=== PATIENT | female | born 1980 | race Caucasian/White ===

== ENCOUNTER 2017-11-24 11:35 | Observation (INO) | payer OTHER ==
[~2017-11-24 11:35] MED LIST: IBUP-232 PO; MECL25CH PO; PAXI10TA PO; ZOFR4TAB3 SL
[2017-11-24 11:44] VITALS: BP 148/100; PULSE 68; RESP 18; TEMP 98.2; O2SAT 96
--- NOTE | 2017-11-24 11:53 | PD ---
HPI Chief Complaint: Chest Pain Time Seen by Provider: 11:51 Travel History International Travel<30 days: No Contact w/Intl Traveler<30days: No Traveled to known affect area: No History of Present Illness HPI This 37-year-old female says she was at work this morning when she got very flushed. This is happened to her in the past when her blood pressure has been elevated. She then started having intermittent tightness in her chest and shortness of breath. . It does not appear related to exertion. She has no history of heart disease. She does smoke. She has no diabetes. She was adopted so she is not aware of her family history. Patient has been having the pain off and on. It lasts from seconds to several minutes. It is not associated with diaphoresis. She does feel a little bit short of breath. He does smoke cigarettes. She is adopted and does not know her family history. She had an elevated blood pressure reading here but generally does not have high blood pressure PFSH Past Medical History Depression: Yes Diminished Hearing: No ?: Not : 4 Para: 4 Tubal Ligation: Yes (09/12/2004) Past Surgical History Appendectomy: Yes (8 years ago) Ear Surgery: Yes (3 ear surgeries) Gynecologic Surgery: Yes (C/SECTION X 1) Tonsillectomy: Yes (at 6 years of age) Other Surgery: Yes (breast augmentation at 14 years of age) Social History Alcohol Use: Yes (COUPLE TIMES A MONTH) Tobacco Use: Yes (VAPES) Substance Use: No Allergies-Medications (Allergen,Severity, Reaction): Coded Allergies: bee venom protein (honey bee) (Unverified Allergy, Mild, DIFFICULTY BREATHING, 11/24/17) Reported Meds & Prescriptions Reported Meds & Active Scripts Active No Active Prescriptions or Reported Medications Review of Systems General / Constitutional: No: Fever, Chills Eyes: No: Diploplia, Blurred Vision HENT: No: Headaches Cardiovascular: Positive: Chest Pain or Discomfort, No: Palpitations, Irregular Rhythm Respiratory: No: Cough Gastrointestinal: No: Vomiting, Diarrhea Genitourinary: No: Urgency, Frequency Skin: Positive Other (FLUSHED) Neurologic: No: Weakness, Dizziness Psychiatric: No: Anxiety, Depression Hematologic/Lymphatic: No: Easy Bruising Physical Exam Narrative GENERAL: Well-developed female SKIN: Focused skin assessment warm/dry. There is some flushing of the face HEAD: Atraumatic. Normocephalic. EYES: Pupils equal and round. No scleral icterus. No injection or drainage. ENT: No nasal bleeding or discharge. Mucous membranes pink and moist. NECK: Trachea midline. No JVD. CARDIOVASCULAR: Regular rate and rhythm. No murmur appreciated. RESPIRATORY: No accessory muscle use. Clear to auscultation. Breath sounds equal bilaterally. No chest wall tenderness GASTROINTESTINAL: Abdomen soft, non-tender, nondistended. Hepatic and splenic margins not palpable. MUSCULOSKELETAL: No obvious deformities. No clubbing. No cyanosis. No edema. NEUROLOGICAL: Awake and alert. No obvious cranial nerve deficits. Motor grossly within normal limits. Normal speech. PSYCHIATRIC: Appropriate mood and affect; insight and judgment normal. Data Data Last Documented VS Vital Signs Date Time Temp Pulse Resp B/P (MAP) Pulse Ox O2 Delivery O2 Flow Rate FiO2 11/24/17 13:06 72 16 143/88 (106) 97 Room Air 11/24/17 11:44 98.2 Orders Orders Complete Blood Count With Diff (11/24/17 11:51) Comprehensive Metabolic Panel (11/24/17 11:51) Troponin I (11/24/17 11:51) Chest, Single Ap (11/24/17 11:51) Aspirin Chew (Aspirin Chew) (11/24/17 12:00) Labs Laboratory Tests Test 11/24/17 12:05 White Blood Count 9.4 TH/MM3 Red Blood Count 4.71 MIL/MM3 Hemoglobin 13.8 GM/DL Hematocrit 40.5 % Mean Corpuscular Volume 85.9 FL Mean Corpuscular Hemoglobin 29.2 PG Mean Corpuscular Hemoglobin Concent 34.0 % Red Cell Distribution Width 12.5 % Platelet Count 152 TH/MM3 Mean Platelet Volume 9.5 FL Neutrophils (%) (Auto) 66.3 % Lymphocytes (%) (Auto) 24.1 % Monocytes (%) (Auto) 4.7 % Eosinophils (%) (Auto) 4.2 % Basophils (%) (Auto) 0.7 % Neutrophils # (Auto) 6.2 TH/MM3 Lymphocytes # (Auto) 2.3 TH/MM3 Monocytes # (Auto) 0.4 TH/MM3 Eosinophils # (Auto) 0.4 TH/MM3 Basophils # (Auto) 0.1 TH/MM3 CBC Comment DIFF FINAL Differential Comment Blood Urea Nitrogen 8 MG/DL Creatinine 0.83 MG/DL Random Glucose 111 MG/DL Total Protein 7.3 GM/DL Albumin 3.7 GM/DL Calcium Level 9.0 MG/DL Alkaline Phosphatase 66 U/L Aspartate Amino Transf (AST/SGOT) 10 U/L Alanine Aminotransferase (ALT/SGPT) 26 U/L Total Bilirubin 0.4 MG/DL Sodium Level 140 MEQ/L Potassium Level 3.7 MEQ/L Chloride Level 108 MEQ/L Carbon Dioxide Level 27.3 MEQ/L Anion Gap 5 MEQ/L Estimat Glomerular Filtration Rate 77 ML/MIN Troponin I LESS THAN 0.02 NG/ML MDM Medical Decision Making Medical Screen Exam Complete: Yes Emergency Medical Condition: Yes Medical Record Reviewed: Yes Differential Diagnosis Differential includes coronary artery disease, GERD, chest wall pain Narrative Course EKG is normal. Troponin is normal patient will be further evaluated in the chest pain center Diagnosis Primary Impression: Chest pain Scripts No Active Prescriptions or Reported Meds Madan Vick MD Nov 24, 2017 11:53
[2017-11-24] MEDS ORDERED: ASPIRIN 81 MG CHEW TAB CHEW ONE (12:00)
[2017-11-24 12:12] VITALS: BP 133/82; PULSE 82; RESP 18; O2SAT 97
[2017-11-24 12:17] LABS: AUTOMATED NEUTROPHIL # 6.2 TH/MM3 (1.8-7.7); BASOPHIL # 0.1 TH/MM3 (0-0.2); BASOPHIL % 0.7 % (0.0-2.0); EOSINOPHIL # 0.4 TH/MM3 (0-0.4); EOSINOPHIL % 4.2 % (0.0-4.0); HEMATOCRIT 40.5 % (35.0-46.0); HEMOGLOBIN 13.8 GM/DL (11.6-15.3); LYMPH % 24.1 % (9.0-44.0); LYMPHOCYTE # 2.3 TH/MM3 (1.0-4.8); MEAN CELL VOLUME 85.9 FL (80.0-100.0); MEAN CORPUSCULAR HEMOGLOBIN 29.2 PG (27.0-34.0); MEAN PLATELET VOLUME 9.5 FL (7.0-11.0); MONO % 4.7 % (0.0-8.0); MONOCYTE # 0.4 TH/MM3 (0-0.9); NEUT % 66.3 % (16.0-70.0); PLATELET COUNT 152 TH/MM3 (150-450); RED BLOOD COUNT 4.71 MIL/MM3 (4.00-5.30); RED CELL DISTRIBUTION WIDTH 12.5 % (11.6-17.2); WHITE BLOOD COUNT 9.4 TH/MM3 (4.0-11.0)
[2017-11-24 12:18] LABS: CHLORIDE 108 MEQ/L (98-107); SODIUM (NA) 140 MEQ/L (136-145)
[2017-11-24 12:22] LABS: ALBUMIN 3.7 GM/DL (3.4-5.0); BICARBONATE 27.3 MEQ/L (21.0-32.0); BLOOD UREA NITROGEN 8 MG/DL (7-18); GLUCOSE,RANDOM 111 MG/DL (74-106)
[2017-11-24 12:25] LABS: ALT (GPT) 26 U/L (10-53); AST (GOT) 10 U/L (15-37); CREATININE 0.83 MG/DL (0.50-1.00); GLOMERULAR FILTRATION RATE 77 ML/MIN (>89)
[2017-11-24 12:26] LABS: TOTAL BILIRUBIN ADULT 0.4 MG/DL (0.2-1.0); TOTAL PROTEIN 7.3 GM/DL (6.4-8.2)
[2017-11-24 12:28] LABS: ALKALINE PHOSPHATASE 66 U/L (45-117)
[2017-11-24 12:30] LABS: TROPONIN I LESS THAN 0.02 NG/ML (0.02-0.05)
--- NOTE | 2017-11-24 12:37 | RADRPT ---
EXAM DATE/TIME: 11/24/2017 12:10 [facility] COMPARISON: No previous studies available for comparison. INDICATIONS : Chest pain, short of breath, elevated BP. MEDICAL HISTORY : None. SURGICAL HISTORY : Appendectomy. Tubal ligation. ENCOUNTER: Initial ACUITY: 1 day PAIN SCORE: 0/10 LOCATION: Bilateral chest FINDINGS: A single view of the chest demonstrates the lungs to be symmetrically aerated without evidence of mas s, infiltrate or effusion. The cardiomediastinal contours are unremarkable. Osseous structures are intact. CONCLUSION: No acute disease. Ramiro Oswald MD on November 24, 2017 at 12:35 Board Certified Radiologist. This report was verified electronically.
[2017-11-24 13:06] VITALS: BP 143/88; PULSE 72; RESP 16; O2SAT 97
[2017-11-24] MEDS ORDERED: ONDANSETRON HCL 4 MG/2 ML VIAL IV PUSH PRN (13:30)
[2017-11-24] MEDS ORDERED: ACETAMINOPHEN/HYDROcodone 325 MG/7.5 MG TAB PO PRN (13:30)
[2017-11-24] MEDS ORDERED: MORPHINE SULFATE 4 MG/ML INJ IV PUSH PRN (13:30)
[2017-11-24] MEDS ORDERED: SODIUM CHLORIDE 0.9% FLUSH 10 ML FLUSH IV FLUSH PRN (13:30)
[2017-11-24] MEDS ORDERED: NITROGLYCERIN 0.4 MG SL 25 TABS/BTL SL PRN (13:30)
[2017-11-24] MEDS ORDERED: ACETAMINOPHEN 500 MG CPLT PO PRN (13:30)
[2017-11-24 14:35] VITALS: BP 118/70; PULSE 71; RESP 20; TEMP 97.9; O2SAT 97
--- NOTE | 2017-11-24 14:52 | HHI.HP ---
[facility] Monty Hugo MD Admission Diagnosis CHEST PAIN Diagnoses: (1) Chest pain Diagnosis: Principal Chief Complaint: Chest discomfort Travel History International Travel<30 Days: No Contact w/Intl Traveler <30 Da: No Traveled to Known Affected Are: No History of Present Illness 37-year-old female with no chronic medical illnesses who presented to the hospital because of chest discomfort. Patient states that she is normal state of health and was at work this morning and approximately 7 AM 1 of her fellow workers told her that she looked a little flushed. Patient did not think anything about it at that time and then approximately an hour and half later she started feeling bad with lightheadedness, dizziness, chest tightness, dyspnea on exertion. Patient indicates that her chest tightness was 4/10 on a pain scale without any radiation to the neck, back, shoulder, arm. She denied any diaphoresis. The patient indicates that her symptoms were persistent and her application development project manager notified her to have her daughter come pick her up and take her home. Patient has had these episodes in the past and most of the time it was due to her blood pressure being elevated. She had her daughter take her to an urgent care and she indicated her systolic blood pressure was in the 150s. She indicates that not as elevated as it can get. Because she continued to have the chest tightness and dyspnea on exertion she came to the emergency department for evaluation. Patient had initial testing which did not indicate any acute abnormality. Is recommended by the ER physician that the patient be observed in the chest pain center. Patient indicates that she has had previous cardiac workups. She has undergone both an exercise stress test as well as a chemical stress test. The last one was around 2 years ago which was completely normal. Review of Systems Constitutional: COMPLAINS OF: Dizziness Cardiovascular: COMPLAINS OF: Chest pain, Dyspnea on Exertion Except as stated in HPI: all other systems reviewed are Neg Past Family Social History Past Medical History No chronic medical illnesses Past Surgical History Appendectomy 1 Right ear surgery Tonsillectomy Breast augmentation Nose surgery Reported Medications Reported Meds & Active Scripts Active No Active Prescriptions or Reported Medications Allergies: Coded Allergies: bee venom protein (honey bee) (Unverified Allergy, Mild, DIFFICULTY BREATHING, 11/24/17) Family History Family history reviewed, however it is not unknown patient is adopted Social History Patient does use vapor with 3% nicotine. He does drink alcohol occasionally. Denies any illicit drug Physical Exam Vital Signs Vital Signs Date Time Temp Pulse Resp B/P (MAP) Pulse Ox O2 Delivery O2 Flow Rate FiO2 11/24/17 13:50 11/24/17 13:06 72 16 143/88 (106) 97 Room Air 11/24/17 12:12 82 18 133/82 (99) 97 Room Air 11/24/17 12:12 Room Air 11/24/17 11:44 98.2 68 18 148/100 (116) 96 Physical Exam GENERAL: Well-developed, well-nourished, in no acute distress. alert and orientated HEENT: Head is normocephalic without any lesions or masses noted. Facial features are symmetric. Eyes: Pupils equal round reactive to light. Extraocular muscles are intact. Conjunctivae were clear. Oropharyngeal: Pharynx without any erythema edema. Tongue is midline without deviation. Buccal mucosa is moist without any masses or lesions NECK: Supple without any masses. Trachea midline no deviation. No JVD, no bruits are appreciated CARDIAC: Regular rhythm, regular rate. S1/S2 are heard. No murmurs gallops or rubs. LUNGS: Clear to auscultation bilaterally. No wheeze, rhonchi or rales. No use of accessory muscles on inspiration or expiration. ABDOMEN: Soft, nontender. Nondistended. Bowel sounds heard in all 4 quadrants. No organomegaly or masses. Negative rebound, negative guarding EXTREMITIES: No edema, pulses are equal bilaterally. No cyanosis or clubbing NEUROLOGY: Mood and affect appear appropriate. Cranial nerves II through XII grossly intact. Muscle strength 5/5 in upper and lower extremities bilaterally. Deep tendon reflexes are 2+ in upper and lower extremities bilaterally. Laboratory Laboratory Tests Test 11/24/17 12:05 White Blood Count 9.4 Red Blood Count 4.71 Hemoglobin 13.8 Hematocrit 40.5 Mean Corpuscular Volume 85.9 Mean Corpuscular Hemoglobin 29.2 Mean Corpuscular Hemoglobin Concent 34.0 Red Cell Distribution Width 12.5 Platelet Count 152 Mean Platelet Volume 9.5 Neutrophils (%) (Auto) 66.3 Lymphocytes (%) (Auto) 24.1 Monocytes (%) (Auto) 4.7 Eosinophils (%) (Auto) 4.2 Basophils (%) (Auto) 0.7 Neutrophils # (Auto) 6.2 Lymphocytes # (Auto) 2.3 Monocytes # (Auto) 0.4 Eosinophils # (Auto) 0.4 Basophils # (Auto) 0.1 CBC Comment DIFF FINAL Differential Comment Blood Urea Nitrogen 8 Creatinine 0.83 Random Glucose 111 Total Protein 7.3 Albumin 3.7 Calcium Level 9.0 Alkaline Phosphatase 66 Aspartate Amino Transf (AST/SGOT) 10 Alanine Aminotransferase (ALT/SGPT) 26 Total Bilirubin 0.4 Sodium Level 140 Potassium Level 3.7 Chloride Level 108 Carbon Dioxide Level 27.3 Anion Gap 5 Estimat Glomerular Filtration Rate 77 Troponin I LESS THAN 0.02 Result Diagram: 11/24/17 1205 11/24/17 1205 Imaging Last Impressions Chest X-Ray 11/24/17 1151 Signed Impressions: Service Date/Time: Friday, November 24, 2017 12:10 - CONCLUSION: No acute disease. MD Arjun Thompson VTE Risk Assessment Caprini VTE Risk Assessment: No/Low Risk (score <= 1) Caprini Risk Assessment Model Point Value = 1 Point Value = 2 Point Value = 3 Point Value = 5 Age 41-60 Minor surgery BMI > 25 kg/m2 Swollen legs Varicose veins or History of unexplained or recurrent spontaneous Oral contraceptives or hormone replacement Sepsis (< 1 month) Serious lung disease, including pneumonia (< 1 month) Abnormal pulmonary function Acute myocardial infarction Congestive heart failure (< 1 month) History of inflammatory bowel disease Medical patient at bed rest Age 61-74 Arthroscopic surgery Major open surgery (> 45 min) Laparoscopic surgery (> 45 min) Malignancy Confined to bed (> 72 hours) Immobilizing plaster cast Central venous access Age >= 75 History of VTE Family history of VTE Factor V Leiden Prothrombin [id number] Lupus anticoagulant Anticardiolipin antibodies Elevated serum homocysteine Heparin-induced thrombocytopenia Other congenital or acquired thrombophilia Stroke (< 1 month) Elective arthroplasty Hip, pelvis, or leg fracture Acute spinal cord injury (< 1 month) Prophylaxis Regimen Total Risk Factor Score Risk Level Prophylaxis Regimen 0-1 Low Early ambulation 2 Moderate Order ONE of the following: *Sequential Compression Device (SCD) *Heparin 5000 units SQ BID 3-4 Higher Order ONE of the following medications: *Heparin 5000 units SQ TID *Enoxaparin/Lovenox 40 mg SQ daily (WT < 150 kg, CrCl > 30 mL/min) *Enoxaparin/Lovenox 30 mg SQ daily (WT < 150 kg, CrCl > 10-29 mL/min) *Enoxaparin/Lovenox 30 mg SQ BID (WT < 150 kg, CrCl > 30 mL/min) AND/OR *Sequential Compression Device (SCD) 5 or more Highest Order ONE of the following medications: *Heparin 5000 units SQ TID (Preferred with Epidurals) *Enoxaparin/Lovenox 40 mg SQ daily (WT < 150 kg, CrCl > 30 mL/min) *Enoxaparin/Lovenox 30 mg SQ daily (WT < 150 kg, CrCl > 10-29 mL/min) *Enoxaparin/Lovenox 30 mg SQ BID (WT < 150 kg, CrCl > 30 mL/min) AND *Sequential Compression Device (SCD) Assessment and Plan Assessment and Plan Chest pain, atypical -Patient with risk factors include tobacco use -Patient has been ruled out for acute coronary event with serial cardiac enzymes have remained negative -Serial cardiac enzymes were performed and reviewed myself that do not indicate any acute abnormality or any changes -Exercise stress test was performed and did not indicate any underlying ischemia -Continue aspirin, nitroglycerin as needed, Logan and morphine for pain -Continue monitor telemetry DVT prevention -Low risk, early ambulation Discharge disposition Discharge home in stable condition Activity: Ad patricio. Diet: Regular diet Medication per medication reconciliation Follow-up with primary medical doctor in 1 week Shaun Cash Nov 24, 2017 14:52
[2017-11-24 15:51] LABS: TROPONIN I LESS THAN 0.02 NG/ML (0.02-0.05)
[2017-11-24 16:00] VITALS: O2SAT 96
--- NOTE | 2017-11-24 17:08 | HHI.DCPOC ---
Discharge Care Plan Diagnosis: (1) Chest pain Goals to Promote Your Health * To prevent worsening of your condition and complications * To maintain your health at the optimal level Directions to Meet Your Goals Take your medications as prescribed Follow your dietary instruction Follow activity as directed Keep your appointments as scheduled Take your immunizations and boosters as scheduled If your symptoms worsen call your PCP, if no PCP go to Urgent Care Center or Emergency Room Smoking is Dangerous to Your Health. Avoid second hand smoke Call the 24-hour hour crisis hotline for domestic abuse at Shaun Cash Nov 24, 2017 17:08
--- NOTE | 2017-11-24 17:23 | TR ---
Date Performed: 11/24/2017 Time Performed: 16:17:20 DOCTOR: Jesus Bauer DRUG LIST: CLINICAL HISTORY: REASON FOR TEST: Chest pain REASON FOR ENDING: Completed Protocol OBSERVATION: Chest Pain: None CONCLUSION: Patient tolerated EDILBERTO protocol with Total Exercise Time=7:31 Maximum EC=804 % Max HR Achieved=88.0% Maximum XJ=042/82, Testing stopped secondary to goals acheived, During peak exercis e, patient was asymptomatic, quick upsloping ST segments, No significant ST depresions, HR and BP leesa ropriate response to exercise, Recovery period, HR and BP returned to baseline COMMENTS: Conclusion: Normal treadmill exercise. No evidence of ischemia.
--- NOTE | 2017-11-24 17:37 | EKG ---
Date Performed: 11/24/2017 Time Performed: 15:09:07 PTAGE: 37 years EKG: Sinus rhythm NORMAL ECG No significant change from prior electrocardiogram. DOCTOR: Tk Dennis Interpretating Date/Time 11/24/2017 17:35:14
--- NOTE | 2017-11-24 17:45 | EKG ---
Date Performed: 11/24/2017 Time Performed: 11:41:35 PTAGE: 37 years EKG: Sinus rhythm NORMAL ECG Compared to prior electrocardiogram, rate has increased PREVIOUS TRACING : 01/19/1993 15.25 DOCTOR: Tk Dennis Interpretating Date/Time 11/24/2017 17:44:08
[2017-11-24] MEDS ORDERED: SODIUM CHLORIDE 0.9% FLUSH 10 ML FLUSH IV FLUSH SCH (21:00)
[2017-11-25] MEDS ORDERED: ASPIRIN 325 MG TAB PO SCH (09:00)
== END 2017-11-24 17:53 | disposition home or self-care (01) ==
LOC: PHED 11:35 → PHEDA 13:19 → PH3A 13:55
PROVIDERS: ADMIT Hospitalist; ATTEND Hospitalist
DX: R07.89 Other chest pain (principal); R06.02 Shortness of breath; R42 Dizziness and giddiness; F32.9 Major depressive disorder, single episode, unspecified; F17.210 Nicotine dependence, cigarettes, uncomplicated
CPT/HCPCS: 71045; 80053; 82550; 84484; 85025; 93005; 93017; 99285; G0378